=== PATIENT | female | born 1970 ===

== ENCOUNTER 2024-09-05 13:45 | Outpatient (AMB) | payer OTHER, SELFPAY ==
--- NOTE | 2024-09-05 13:53 | AM.OFFWIN_ITS ---
Intake Vital Signs 09/05/24 13:54 Height 5 ft 4 in Weight 199 lb BMI 34.2 BP 120/74 Blood Pressure Location Lt brachial Position Sitting Respiration 18 Pulse 77 Pulse Source Pulse Oximeter Temp 98.1 F Temp Source Oral Pulse Oximetry (%) 97 Oxygen Delivery Method Room Air Intake Visit Reasons: [employer] Tick bite Intake Note: Pt is here today for a walk in visit. Pt c/o tick bite behind her L ear. Pt would like to have blood test done for lyme. Pt has hx of lyme disease. Allergies No Known Allergies Allergy (Verified 09/05/24 13:57) HPI HPI Comments History of Present Illness Details History of Present Illness - The patient is a 54-year-old female pr esenting with concerns following a tick bite. - The patient went for a walk 2 days ago and found a tick behind her ear upon returning home; the tick did not appear engorged when removed. - She has a past medical history of Lyme disease from a previous tick bite years ago. - Currently observed symptoms include a localized red franklyn and a small lump at the site of the tick bite, but there are no symptoms such as rash, fever, or joint pain. - The patient is scheduled to travel on Tuesday for a week. Physical Exam General: Cooperative, healthy appearing, comfortable, no acute distress and well developed Orientation: Patient oriented x3 Limitations: No limitations Head: Normal to inspection Ears: Hearing grossly normal bilaterally, post auricular left side has a 0.5cm area of erythema with a small palpable lump, no warmth or drainage. Nose: Normal External nose present Face and sinus: Normal facial exam Eyes: Appearance normal, both eyes and all related structures Neck: Normal visual inspection and Yes full ROM Respiratory: Normal respiratory effort and able to speak in complete sentences. Skin: as above Neuro: Patient oriented x3 Extremities: Normal to inspection Review of Systems Const All systems reviewed & are unremarkable except as noted in HPI and below Physical Exam Vital Signs: Last Vital Signs Temp 98.1 F 09/05/24 13:54 Pulse 77 09/05/24 13:54 Resp 18 09/05/24 13:54 BP 120/74 09/05/24 13:54 Pulse Ox 97 09/05/24 13:54 Oxygen Delivery Method Room Air 09/05/24 13:54 BMI result Body Mass Index 34.2 Assessment & Plan Assessment & Plan (1) Tick bite: Code(s): W57.XXXA - Bitten or stung by nonvenomous insect and other nonvenomous arthropods, initial encounter Qualifiers: Encounter type: initial encounter Site of tick bite: other part of neck Qualified Code(s): S10.86XA - Insect bite of other specified part of neck, initial encounter; W57.XXXA - Bitten or stung by nonvenomous insect and other nonvenomous arthropods, initial encounter Plan: I will prescribe a prophylactic dose of doxycycline due to the patient's history of Lyme disease, even though the tick was attached for less than 36 hours. The patient will take a single dose of two pills today to ensure timely intervention. Upon returning from her travel, a tick panel blood test will be conducted to check for any infection, allowing the appropriate time for detection. She was advised to monitor for symptoms like rash, joint pain, or fever, and contact us for further evaluation if needed. This approach balances immediate prophylaxis while taking into consideration her recent travel plans. Patient was informed and verbally consented to the use of an ambient scribe for clinic note documentation during this visit. Orders: Orders Tick-borne Disease Molecular Today W57.XXXA - Bitten or stung by nonvenomous insect and other nonvenomous arthropods, initial encounter Medications: New doxycycline hyclate 200 mg (2 x 100 mg) PO once 2 tabs 0RF tick bite ppx Coding Level of Care Code New Pt Level 3 (48096) Diagnoses Tick bite of other part of neck, initial encounter S10.86XA; W57.XXXA Encounter type: initial encounter Site of tick bite: other part of neck
[2024-09-05 13:54] VITALS: BP 120/74; PULSE 77; RESP 18; TEMP 36.7; O2SAT 97; BMI 34.2
== END 2024-09-05 14:38 | disposition home or self-care (01) ==
PROVIDERS: Visit Provider Physician Assistant
DX: S10.86XA Insect bite of other specified part of neck, initial encounter (principal); W57.XXXA Bitten or stung by nonvenomous insect and other nonvenomous arthropods, initial encounter

== ENCOUNTER → 2024-09-05 13:45 | Outpatient (BNVA) | payer OTHER, SELFPAY | PROVIDERS: Visit Provider Physician Assistant ==